=== PATIENT | male | born 2000 | race African-American/Black ===

== ENCOUNTER 2019-12-23 17:24 | Emergency (ER) | payer OTHER ==
[2019-12-24 13:50] LABS: SARS-CoV-2 MS2 Positive; SARS-CoV-2 N Gene Positive; SARS-CoV-2 S Gene Positive; SARS-CoV-2 orf1ab Positive
== END 2019-12-23 18:06 | disposition home or self-care (01) ==
LOC: ERS 17:24
DX: U07.1 COVID-19 (principal)
CPT/HCPCS: 87635; 99284; U0003